=== PATIENT | female | born 2000 | race Caucasian/White ===

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

== ENCOUNTER → 2019-04-23 | Outpatient (CLI) | payer OTHER ==
--- NOTE | 2019-04-23 16:56 | Diagnostic Imaging Report ---
Renal Scan with Lasix [place] Clinical information: Hydronephrosis with ureteral stricture. 18 F with history of blockage of right kidney one year ago. Has back pain sporadically in the last year. Comparison: Most recent prior renal scan with Lasix 10/23/2018 Technique: Following intravenous administration of 10 mCi of Tc-99m MAG3, dynamic images of the kidneys in the posterior projection were obtained through 40 minutes. Lasix 40 mg was administered intravenously at 10 minutes post injection of the tracer. Report: Left kidney: Perfusion of the left kidney is prompt. The kidney has a normal reniform shape. Extraction of tracer from the blood pool is normal. Clearance of tracer from the renal parenchyma is prompt. The pelvicalyceal system is not dilated. Physiologic pooling of tracer is seen within the pelvicalyceal system. Drainage of tracer from the pelvicalyceal system is prompt and adequate prior to administration of Lasix. No significant stasis of tracer is seen within the left ureter. Right kidney: Perfusion to the right kidney is prompt. The right kidney has a normal reniform shape. Extraction of tracer by the renal parenchyma is normal. Clearance of tracer from the renal parenchyma is prompt. The pelvicaliceal system is not dilated; the renal pelvis is slightly prominent. Physiologic pooling of tracer is seen in the renal pelvis. Drainage of tracer from the pelvicalyceal system is prompt and adequate prior to administration of Lasix. No significant stasis of tracer is seen within the right ureter. Differential renal function: The left kidney contributes 44% of total renal function and the right kidney contributes 56% (normal 43-57%), previously left 47% and right 53%.. Impression: 1. The function of the left kidney is generally normal. No hydronephrosis is present. No physiologically significant obstruction of the renal collecting system is present. The appearance of the kidney and its drainage pattern are unchanged compared to the prior study 10/23/2018. 2. The function of the right kidney is generally normal. No hydronephrosis is present. No physiologically significant obstruction of the renal collecting system is present. The appearance of the kidney is unchanged compared to the prior study but drainage of the pelvicalyceal system shows interval improvement. 3. The differential renal function is preserved in both kidneys with statistically significant change compared to the prior study of 10/23/2018. Signed by: Dr. Anna Vanegas M.D. on 04/23/2019 4:52 PM
== END ==
LOC: NM 09:21
PROVIDERS: ATTEND Urology
DX: N13.1 Hydronephrosis with ureteral stricture, not elsewhere classified (principal)
CPT/HCPCS: 78708; 81025; A9562; J1940